=== PATIENT | female | born 1980 | race Caucasian/White ===

== ENCOUNTER → 2024-03-09 | Outpatient (CLI) | payer OTHER ==
[~2024-03-09] MED LIST: ACEBUTCAFT PO; ADRENAL SUPPORT; ALBU90OI INH; AMPDEX5 PO; ATOM25; BUPR150T2 PO; CEPH500 PO; CLIN300 PO; CLON.5 PO; DEPO SHOT; ERGO400 PO; FLUO20; GABA300 PO; HYDACE5 PO; IBUP800 PO; IUD; KLONOPIN; LAMO100; LAMO25; METPHE10; METPHE10 PO; METPHE20ER PO; Naprosyn500 MG PO; ONDA4 PO; ONDA4ODT MM; OXYACE5T PO; PROC10 PO; PROM25 PO; SULTRIDS PO; TRAM50 PO; VITB100 PO; ZIPR20 PO; ZOLP10 PO
[2024-03-09 18:04] LABS: Bacterial Vaginosis PCR Negative (NEGATIVE); Candida Group, PCR NOT DETECTED (NOT DETECT); Candida glabrata-krusei, PCR NOT DETECTED (NOT DETECT)
[2024-03-17 17:20] LABS: HPV HIGH RISK BY TMA Not Detected; HPV SOURCE Cervical/Vag
== END ==
LOC: LAB 13:48 → LAB SHORT 13:48
PROVIDERS: Obstetrics & Gynecology
DX: Z01.419 Encounter for gynecological examination (general) (routine) without abnormal findings (principal); N76.0 Acute vaginitis
CPT/HCPCS: 87481; 87624; 87661; 87801; G0123

== ENCOUNTER 2024-05-02 06:20 | Day surgery (SDC) | payer OTHER ==
[~2024-05-02] VITALS: Ht 167.6 cm; Wt 107.2 kg
[2024-05-02] MEDS ORDERED: IBUP200 (06:57)
[2024-05-02] MEDS ORDERED: ACET325 (06:57)
[2024-05-02] MEDS ORDERED: IMITREX50 M1 (06:58)
[2024-05-02] MEDS ORDERED: PANT40 (06:58)
[2024-05-02] MEDS ORDERED: Lactated Ringer's 1,000 ML IV ONE ×2 (07:24→07:49)
[2024-05-02] MEDS ORDERED: propofoL 50 ML IV ONE (07:24)
[2024-05-02 08:48] VITALS: BP 103/81
== END 2024-05-02 08:47 | disposition home or self-care (01) ==
LOC: ORSCSDS 06:20
PROVIDERS: Specialist
PROC: 0DB68ZX Excision of Stomach, Via Natural or Artificial Opening Endoscopic, Diagnostic (ICD-10-PCS; principal; 2024-05-02 08:00)
PROC: 0DB58ZX Excision of Esophagus, Via Natural or Artificial Opening Endoscopic, Diagnostic (ICD-10-PCS; principal; 2024-05-02 08:00)
DX: R13.10 Dysphagia, unspecified (principal); K31.9 Disease of stomach and duodenum, unspecified; J35.1 Hypertrophy of tonsils; K44.9 Diaphragmatic hernia without obstruction or gangrene; Z90.49 Acquired absence of other specified parts of digestive tract; Z79.899 Other long term (current) drug therapy
CPT/HCPCS: 88305; J2704; J7120

== ENCOUNTER → 2025-04-13 | Outpatient (CLI) | payer OTHER ==
[~2025-04-13] MED LIST changes: +ACET325; +IBUP200; +IMITREX50 M1; +PANT40
[2025-04-13 13:50] LABS: Bacterial Vaginosis PCR Negative (NEGATIVE); Candida Group, PCR NOT DETECTED (NOT DETECT)
[2025-04-13 13:54] LABS: Candida glabrata-krusei, PCR DETECTED (NOT DETECT)
== END ==
LOC: LAB SHORT 09:57 → LAB 09:57
DX: N89.8 Other specified noninflammatory disorders of vagina (principal)
CPT/HCPCS: 81515